=== PATIENT | male | born 1970 | race Caucasian/White ===

== ENCOUNTER 2016-12-10 22:50 | Emergency (ER) | payer BC, OTHER ==
[2016-12-10 22:58] VITALS: PULSE 81; RESP 16; TEMP 98.4; O2SAT 97
[2016-12-10 22:59] VITALS: BP 117/78
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
== END 2016-12-11 01:07 | disposition home or self-care (01) ==
PROC: 0HQFXZZ Repair Right Hand Skin, External Approach (ICD-10-PCS; principal; 2016-12-10)
DX: S61.411A Laceration without foreign body of right hand, initial encounter (principal); J45.909 Unspecified asthma, uncomplicated; V18.0XXA Pedal cycle driver injured in noncollision transport accident in nontraffic accident, initial encounter; Y99.8 Other external cause status; Y93.55 Activity, bike riding

== ENCOUNTER 2018-02-20 12:58 | Emergency (ER) | payer OTHER ==
[2018-02-20] MEDS ORDERED: IPRATROPIUM/ALBUTEROL 3 ML DEYVIAL ONE (13:07)
[2018-02-20] MEDS ORDERED: ALBUTEROL 3 ML DEYVIAL IH ONE ×3 (13:07→15:49)
[2018-02-20] MEDS ORDERED: IPRATROPIUM/ALBUTEROL 3 ML DEYVIAL IH ONE (13:07)
[2018-02-20] MEDS ORDERED: methylPREDNISolone SOD SUCC 125 MG/2 ML VIAL IVP ONE (13:07)
--- NOTE | 2018-02-20 13:09 | EDPHY ---
H & P Stated Complaint: Chest pain, shortness of breath Time Seen by Provider: 02/20/18 13:01 HPI/ROS: CHIEF COMPLAINT: Chest pain, shortness of breath HISTORY OF PRESENT ILLNESS: Patient presents the ED with complaints of severe chest pain shortness of breath that began while exercising today. The patient has a history of intermittent asthma. He did use his rescue inhaler once without significant improvement of his symptoms. The patient recently had been on Symbicort which he stopped taking several weeks ago. The patient denies any recent oral steroids. REVIEW OF SYSTEMS: A comprehensive 10 point review of systems is otherwise negative aside from elements mentioned in the history of present illness. Source: Patient Exam Limitations: No limitations - Personal History Current Tetanus Diphtheria and Acellular Pertussis (TDAP): Yes Tetanus Vaccine Date: 2008 - Medical/Surgical History Hx Asthma: Yes Hx Chronic Respiratory Disease: No Hx Diabetes: No Hx Cardiac Disease: No Hx Renal Disease: No Hx Cirrhosis: No Hx Alcoholism: No Hx HIV/AIDS: No Hx Splenectomy or Spleen Trauma: No Other PMH: medical- exercise induced asthma. surgical- hernia repair 2008, vasectomy October of 2012, RAC vein removed) - Social History Smoking Status: Never smoked - Physical Exam Exam: General Appearance: Alert, mild respiratory distress Eyes: Pupils equal and round no pallor or injection ENT, Mouth: Mucous membranes moist Respiratory: Tachypnea, diffuse expiratory wheezing Cardiovascular: Tachycardia Gastrointestinal: Abdomen is soft and nontender, no masses, bowel sounds normal Neurological: 5/5 strength all 4 extremities Skin: Warm and dry, no rashes Musculoskeletal: Neck is supple nontender Extremities: symmetrical, full range of motion Psychiatric: Patient is oriented X 3, there is no agitation Allergies/Adverse Reactions: No Known Allergies Allergy (Unverified 02/10/11 16:45) Home Medications: Medication Instructions Recorded predniSONE [prednisone 20mg (RX)] 3 tab PO DAILY #15 tab 02/20/18 Medical Decision Making - Diagnostics EKG Interpretation: EKG: Complete interpretation has been separately recorded in the [email or web address] archive. Summary impression: Sinus tachycardia, rate 117, no ST segment elevation or depression noted Imaging Results: Imaging Impressions Chest X-Ray 02/20/18 13:07 Impression: 1. Negative chest tube. 2. Gaseous distention of the stomach. ED Course/Re-evaluation: The patient presents to the ED with dyspnea and chest pain secondary to a fairly severe asthma exacerbation. The patient was noted to be very bronchospastic upon arrival. Patient had an IV established. He received DuoNeb , a single albuterol nebulizer and IV Solu-Medrol. I re-evaluated the patient shortly after his initial treatment he continued to have ongoing wheezing. The patient was started on a continuous albuterol nebulizer. Chest x-rays performed in demonstrates no evidence of pneumonia, pneumothorax or cardiomegaly. Re-evaluation at 4:30 p.m.: The patient did have a 2nd repeat troponin which is negative. Patient received additional albuterol nebulizer with improvement of his wheezing. The patient states he is feeling significantly better at this point time. The patient will be discharged home with a 5 day course of prednisone. He is advised to follow up with Dr. Fried from Pulmonary. The patient is advised to return to the ED for markedly worsening symptoms or other concerns. Differential Diagnosis: Differential diagnosis considered includes asthma, bronchitis, pneumonia - Data Points Laboratory Results: Laboratory Results 02/20/18 13:05 02/20/18 13:05 02/20/18 02/20/18 02/20/18 15:46 13:10 13:05 WBC RBC Hgb Hct MCV MCH MCHC RDW Plt Count MPV Neut % (Auto) Lymph % (Auto) [place] % (Auto) Eos % (Auto) Baso % (Auto) Nucleat RBC Rel Count Absolute Neuts (auto) Absolute Lymphs (auto) Absolute Monos (auto) Absolute Eos (auto) Absolute Basos (auto) Absolute Nucleated RBC Immature Gran % Immature Gran # Sodium 139 mEq/L mEq/L (135-145) Potassium 3.6 mEq/L mEq/L (3.3-5.0) Chloride 104 mEq/L mEq/L (97-110) Carbon Dioxide 12 mEq/l L mEq/l (22-31) Anion Gap 23 mEq/L H mEq/L (6-14) BUN 24 mg/dL H mg/dL (7-23) Creatinine 1.2 mg/dL mg/dL (0.7-1.3) Estimated GFR > 60 Glucose 122 mg/dL H mg/dL (70-100) Calcium 9.8 mg/dL mg/dL (8.5-10.4) POC Troponin I 0.00 ng/mL ng/mL 0.01 ng/mL ng/mL (0.00-0.08) (0.00-0.08) 02/20/18 13:05 WBC 8.06 10^3/uL 10^3/uL (3.80-9.50) RBC 5.39 10^6/uL 10^6/uL (4.40-6.38) Hgb 16.8 g/dL g/dL (13.7-17.5) Hct 50.1 % % (40.0-51.0) MCV 92.9 fL fL (81.5-99.8) MCH 31.2 pg pg (27.9-34.1) MCHC 33.5 g/dL g/dL (32.4-36.7) RDW 12.1 % % (11.5-15.2) Plt Count 285 10^3/uL 10^3/uL (150-400) MPV 10.1 fL fL (8.7-11.7) Neut % (Auto) 51.2 % % (39.3-74.2) Lymph % (Auto) 37.7 % % (15.0-45.0) [place] % (Auto) 7.8 % % (4.5-13.0) Eos % (Auto) 1.4 % % (0.6-7.6) Baso % (Auto) 1.5 % % (0.3-1.7) Nucleat RBC Rel Count 0.0 % % (0.0-0.2) Absolute Neuts (auto) 4.13 10^3/uL 10^3/uL (1.70-6.50) Absolute Lymphs (auto) 3.04 10^3/uL H 10^3/uL (1.00-3.00) Absolute Monos (auto) 0.63 10^3/uL 10^3/uL (0.30-0.80) Absolute Eos (auto) 0.11 10^3/uL 10^3/uL (0.03-0.40) Absolute Basos (auto) 0.12 10^3/uL H 10^3/uL (0.02-0.10) Absolute Nucleated RBC 0.00 10^3/uL 10^3/uL (0-0.01) Immature Gran % 0.4 % % (0.0-1.1) Immature Gran # 0.03 10^3/uL 10^3/uL (0.00-0.10) Sodium Potassium Chloride Carbon Dioxide Anion Gap BUN Creatinine Estimated GFR Glucose Calcium POC Troponin I Medications Given: Discontinued Medications Albuterol (Proventil Neb) 3 ml IH EDNOW ONE Stop: 02/20/18 13:08 Last Admin: 02/20/18 13:21 Dose: 3 ml Albuterol (Proventil Neb) 3 ml IH EDNOW ONE Stop: 02/20/18 13:42 Last Admin: 02/20/18 13:42 Dose: 3 ml Albuterol (Proventil Neb) 3 ml IH EDNOW ONE Stop: 02/20/18 15:50 Last Admin: 02/20/18 16:25 Dose: 3 ml Albuterol/Ipratropium (Duoneb) 3 ml IH EDNOW ONE Stop: 02/20/18 13:08 Last Admin: 02/20/18 13:21 Dose: 3 ml Methylprednisolone Sodium Succinate (Solu-Medrol) 125 mg IVP EDNOW ONE Stop: 02/20/18 13:08 Last Admin: 02/20/18 13:21 Dose: 125 mg Point of Care Test Results: Chemistry 02/20/18 02/20/18 15:46 13:10 POC Troponin I 0.00 ng/mL ng/mL 0.01 ng/mL ng/mL (0.00-0.08) (0.00-0.08) Departure - Departure Disposition: Home, Routine, Self-Care Clinical Impression: Asthma exacerbation Condition: Good Instructions: Asthma (ED) Additional Instructions: 1. Use albuterol inhaler up to every 2-4 hours as needed for cough and shortness of breath. 2. Take prednisone as directed for next 5 days. 3. Please contact Dr. Fried from Pulmonary to schedule a follow-up visit. Referrals: Devyn Fried MD [Medical Doctor] - As per Instructions
[2018-02-20 13:16] LABS: PLATELET COUNT 285 10^3/uL (150-400)
[2018-02-20] MEDS ORDERED: ALBUTEROL 3 ML DEYVIAL ONE (13:39)
--- NOTE | 2018-02-20 14:19 | CPEKG ---
Test Reason : OPEN Blood Pressure : / mmHG Vent. Rate : 117 BPM Atrial Rate : 118 BPM P-R Int : 147 ms QRS Dur : 092 ms QT Int : 339 ms P-R-T Axes : 072 022 038 degrees QTc Int : 473 ms Sinus tachycardia Confirmed by Robin Penn ([id number]) on 02/20/2018 2:19:17 PM Referred By: Confirmed By:Robin Penn
[2018-02-20 16:58] VITALS: BP 133/62
== END 2018-02-20 16:57 | disposition home or self-care (01) ==
DX: J45.901 Unspecified asthma with (acute) exacerbation (principal)
CPT/HCPCS: 84484-PO; 96374; J2930; J7613